=== PATIENT | male | born 1965 | race Caucasian/White ===

== ENCOUNTER 2016-11-07 02:54 | Emergency (ER) | payer BC, OTHER ==
--- NOTE | 2016-11-07 03:05 | ED ---
Throat Pain/Nasal Congestion - HPI Summary HPI Summary: Patient accidentally broke a tooth last night. No allev factors attempted. Has associated hyperesthesia. Denies systemic symptoms or neuro symptoms. - History of Current Complaint Time Seen by Provider: 11/07/16 02:57 Hx Obtained From: Patient Severity: Moderate - Allergies/Home Medications Allergies/Adverse Reactions: Allergies Allergy/AdvReac Type Severity Reaction Status Date / Time No Known Allergies Allergy Verified 08/20/12 22:45 PMH/Surg Hx/FS Hx/Imm Hx Previously Healthy: Yes Infectious Disease History: Denies: Traveled Outside the [place] in Last 30 Days - Social History Substance Use Type: Reports: None Review of Systems Positive: Dental Pain All Other Systems Reviewed And Are Negative: Yes Physical Exam Triage Information Reviewed: Yes Vital Signs Reviewed: Yes Appearance: Positive: Well-Appearing, Well-Nourished, Pain Distress Skin: Positive: Warm, Skin Color Reflects Adequate Perfusion Head/Face: Positive: Normal Head/Face Inspection Eyes: Positive: Normal ENT: Positive: Dental tenderness, Other - Broken tooth number 14 Neck: Positive: Supple, Nontender, No Lymphadenopathy Respiratory/Lung Sounds: Positive: Clear to Auscultation, Breath Sounds Present Cardiovascular: Positive: Normal, RRR Neurological: Positive: Normal, Sensory/Motor Intact, Alert, Oriented to Person Place, Time, CN Intact II-III, Reflexes Intact, NV Bundle Intact Distally EENT Course/Dx - Course Course Of Treatment: Dental block and antibiotic prescription. Dental FU recommended and referred. - Differential Diagnoses Differential Diagnoses: Other - Dental fracture Matt 2 - Diagnoses Provider Diagnoses: Tooth fracture Discharge - Discharge Plan Condition: Stable Disposition: HOME Prescriptions: Penicillin VK TAB 500 MG(NF) [Penicillin VK 500 mg Tab(NF)] 500 mg PO QID 10 Days Patient Education Materials: Toothache (ED) Referrals: No Primary Care Phys,NOPCP [Medical Doctor] - Diego Redman MD [Doctor of Dental Medicine] -
[2016-11-07 03:08] VITALS: BP 154/90
[2016-11-07] MEDS ORDERED: Acetaminop/Codeine 30 MG TAB* 1 TAB (300 MG/30 MG) ONE (03:41)
[2016-11-07] MEDS ORDERED: Acetaminop/Codeine 30 MG TAB* 1 TAB (300 MG/30 MG) PO ONE (03:46)
== END 2016-11-07 03:50 | disposition home or self-care (01) ==
LOC: ED 02:54
DX: S02.5XXA Fracture of tooth (traumatic), initial encounter for closed fracture (principal); S06.9X0A Unspecified intracranial injury without loss of consciousness, initial encounter
CPT/HCPCS: 99281; A9270-GY

== ENCOUNTER 2019-06-06 09:52 | Observation (INO) | payer BC ==
--- NOTE | 2019-06-06 10:18 | ED ---
Complex/Multi-Sys Presentation - HPI Summary HPI Summary: This patient is a 53 year old M presenting to [facility] with a chief complaint of SOB, stabbing flank pain, and back pain since yesterday. He had a gastric bypass done years ago. Pt describes the back pain as being hit by a rubber band on the area. He notes he has a DVT, but is not currently on any blood thinner medication. Pt has FHx for MT. The patient rates the pain 8/10 in severity. Symptoms aggravated by nothing. Symptoms alleviated by nothing. Patient reports cough. Patient denies nausea, fever, difficulty breathing. Medications reviewed. Allergies noted. Pt has not travelled recently. Pt is a daily drinker , but does not use drugs. - History Of Current Complaint Chief Complaint: EDChestPainROMI Time Seen by Provider: 06/06/19 10:09 Hx Obtained From: Patient Onset/Duration: Sudden Onset, Lasting Days - 1, Still Present Timing: Constant, Days - 1 Severity Currently: Moderate Severity Initially: Moderate Character: Sharp - flank pain is sharp Aggravating Factor(s): nothing Alleviating Factor(s): nothing Associated Signs And Symptoms: Positive: SOB, Cough, Back Pain, Other - positive - stabbing flank pain. negative - difficulty breathing.. Negative: Nausea, Fever - Allergies/Home Medications Allergies/Adverse Reactions: Allergies Allergy/AdvReac Type Severity Reaction Status Date / Time No Known Allergies Allergy Verified 06/06/19 10:23 Home Medications: Home Medications NK [No Home Medications Reported] 06/06/19 [History Confirmed 06/06/19] PMH/Surg Hx/FS Hx/Imm Hx Previously Healthy: No Sensory History: Denies: Hx Cataracts EENT History: Denies: Hx Deafness Neurological History: Denies: Hx Dementia - Surgical History Surgical History: Yes Infectious Disease History: No Infectious Disease History: Denies: Traveled Outside the [place] in Last 30 Days - Family History Known Family History: Positive: Cardiac Disease - Social History Alcohol Use: None Substance Use Type: Reports: None Smoking Status (MU): Never Smoked Tobacco Review of Systems Negative: Fever Respiratory: Other - negative - difficulty breathing Positive: Shortness Of Breath, Cough Gastrointestinal: Other - positive - stabbing flank pain Negative: Nausea Musculoskeletal: Other - positive - back pain All Other Systems Reviewed And Are Negative: Yes Physical Exam - Summary Physical Exam Summary: Constitutional: Well-developed, Well-nourished, Alert. (-) Distressed Skin: Warm, Dry HENT: Normocephalic; Atraumatic Eyes: Conjunctiva normal Neck: Musculoskeletal ROM normal neck. (-) JVD, (-) Stridor, (-) Tracheal deviation Cardio: Rhythm regular, rate normal, Heart sounds normal; Intact distal pulses; The pedal pulses are 2+ and symmetric. Radial pulses are 2+ and symmetric. (-) Murmur Pulmonary/Chest wall: Effort normal. (-) Respiratory distress, (-) Wheezes, (-) Rales Abd: Soft, (-) tenderness, (-) Distension, (-) Guarding, (-) Rebound Musculoskeletal: (-) Edema Lymph: (-) Cervical adenopathy Neuro: Alert, Oriented x3 Psych: Mood and affect Normal Triage Information Reviewed: Yes Vital Signs On Initial Exam: Initial Vitals Temp Pulse Resp BP Pulse Ox 97.8 F 106 18 186/107 96 06/06/19 09:52 06/06/19 09:52 06/06/19 09:52 06/06/19 09:52 06/06/19 09:52 Vital Signs Reviewed: Yes Diagnostics - Vital Signs Vital Signs Temp Pulse Resp BP Pulse Ox 06/06/19 09:52 97.8 F 106 18 186/107 96 - Laboratory Result Diagrams: 06/06/19 10:03 06/06/19 10:03 Lab Statement: Any lab studies that have been ordered have been reviewed, and results considered in the medical decision making process. - CT Chest/Thorax CTA CT Interpretation Completed By: Radiologist Summary of CT Findings: IMPRESSION: 1. LARGE BILATERAL PULMONARY EMBOLI. 2. NODULARITY OF THE RIGHT LOWER LUNG MEASURING UP TO 1.8 CM IN SIZE. THE RECOMMENDATIONS FOR FOLLOWUP AND MANAGEMENT OF AN INCIDENTALLY DETECTED PULMONARY NODULE GREATER THAN 8 MM IN SIZE, IN A PATIENT WITHOUT A HISTORY OF MALIGNANCY, INCLUDE FOLLOWUP CT AT 3 MONTHS, PET-CT, AND/OR BIOPSY. 3. SMALL LEFT PLEURAL EFFUSION. 4. FATTY INFILTRATION OF THE LIVER. These findings were reviewed by Dr. Feliz. - EKG 1018 Cardiac Rate: Tachycardia - 103 BPM EKG Rhythm: Sinus Tachycardia Summary of EKG Findings: Sinus tachycardia, 103 BPM, inverted t wave in 3 and Q wave in 3 Complex Multi-Symp Course/Dx Course Of Treatment: Patient is here with chest pain and shortness of breath 2/ 2 to newly diagnosed PE. Patient was stable and satting well on room air upon arrival. Patient had a CT which showed bilateral pulmonary embolisms. Patient had normal troponin and BNP. Patient was normotensive. Patient was restarted on xarelto. Patient was admitted to the hospital for further workup and management. - Diagnoses Provider Diagnoses: Chest pain, Tachycardia, Pulmonary embolism - Physician Notifications Discussed Care Of Patient With: Alma Moise Time Discussed With Above Provider: 11:41 Instructed by Provider To: Other - Dr. Moise, hospitalist, agrees to admit pt. Discharge ED - Sign-Out/Discharge Documenting (check all that apply): Patient Departure - admit Patient Received Moderate/Deep Sedation with Procedure: No - Discharge Plan Condition: Stable Disposition: ADMITTED TO [facility] - Billing Disposition and Condition Condition: STABLE Disposition: Admitted to [facility] - Attestation Statements Document Initiated by Scribe: Yes Documenting Scribe: Jimi Kang Provider For Whom Scribe is Documenting (Include Credential): Dr. Ahmet Feliz MD Scribe Attestation: Jimi Valentin scribed for Dr. Ahmet Feliz MD on 06/06/19 at 1508. Scribe Documentation Reviewed: Yes Provider Attestation: The documentation as recorded by the Jimi adams accurately reflects the service I personally performed and the decisions made by me, Dr. Ahmet Feliz MD Status of Scribe Document: Viewed
[2019-06-06 10:19] LABS: ABS Basophils 0.1 10^3/ul (0-0.2); ABS Eosinophils 0.1 10^3/ul (0-0.6); ABS Lymphocytes 0.8 10^3/ul (1.0-4.8); ABS Monocytes 0.9 10^3/ul (0-0.8); ABS Neutrophils 5.5 10^3/ul (1.5-7.7); Eosinophil % 1.6 %; Hematocrit 41 % (42-52); Hemoglobin 13.9 g/dL (14.0-18.0); Lymphocyte % 11.1 %; Mean Corpuscular HGB Conc 34 g/dL (31-36); Mean Corpuscular Hemoglobin 31 pg (27-31); Mean Corpuscular Volume 89 fL (80-94); Mean Platelet Volume 8.8 fL (7.4-10.4); Platelet Count 160 10^3/uL (150-450); Red Blood Count 4.56 10^6 /uL (4.18-5.48); Red Cell Distribution Width 12 % (10-15); White Blood Count 7.4 10^3/uL (3.5-10.8)
[2019-06-06 10:38] LABS: INR 1.21 (0.82-1.09)
[2019-06-06 10:44] LABS: Albumin 3.9 g/dL (3.2-5.2); Calcium 8.8 mg/dL (8.6-10.3); Total Bilirubin 1.4 mg/dL (0.2-1.0)
[2019-06-06 10:50] LABS: Albumin/Globulin Ratio 1.2 (1-3); BUN/Creatinine Ratio 11.8 (8-20); EGFR African American 114.1 (>60); EGFR Non-African American 94.3 (>60); Globulin 3.3 g/dL (2-4); Total Protein 7.2 g/dL (6.4-8.9)
[2019-06-06] MEDS ORDERED: Iohexol 350* (CONTRAST) 500 ML MDV IV ONE (11:20)
[2019-06-06] MEDS ORDERED: Rivaroxaban TAB(*) 15 MG PO ONE (11:41)
[2019-06-06] MEDS ORDERED: Acetaminophen TAB* 325 MG PO PRN (12:35)
[2019-06-06] MEDS ORDERED: NS 0.9% 1000 ML** 1,000 ML IV SCH (12:45)
[2019-06-06] MEDS ORDERED: Perflutren Lipid Microsphere* 3 ML VIAL ONE (14:54)
--- NOTE | 2019-06-06 16:38 | ECHO ---
*[facility]* [place] [address] Fax #: [phone] Transthoracic Echocardiogram Patient: Babar Viveros : 1965 Study Date: 06/06/2019 Age: 53 Gender: M HR: Height: 68 in /172.7 cm BSA: 2.25 m^2 Weight: 249.5 lb /113.4 kg BMI: 38 kg/m^2 *Vat Operator: * Peg Edwards [facility] *Referring Physician: * Veronica Araujo *Reading Physician: * Ana Solorio MD Indications: Pulmonary Embolism. History: Family history of CAD. Conclusions Summary: - Left ventricle: The cavity size is normal. Wall thickness is mildly increased. Systolic function is at the lower limits of normal. The estimated ejection fraction is 50-55%. Doppler parameters are consistent with abnormal left ventricular relaxation (grade 1 diastolic dysfunction). - Right ventricle: Systolic function is mildly to moderately reduced. - Mitral valve: There is trace regurgitation. - Aortic valve: The leaflets are mildly calcified, predominantly NCC. There is no evidence of stenosis. - No prior echocardiogram to compare. Study data: Transthoracic echocardiogram. Procedure: Transthoracic echocardiography was performed. Image quality was suboptimal. The study was technically limited due to body habitus. Intravenous Definity , 4 mlswas administered. Image enhancement administered by Complete 2D, spectral Doppler, and color flow Doppler. Patient status: Inpatient. Patient room number: 445-2. Rhythm: Normal sinus rhythm. Findings Left ventricle: The cavity size is normal. Wall thickness is mildly increased. Systolic function is at the lower limits of normal. The estimated ejection fraction is 50-55%. Wall motion is normal; there are no regional wall motion abnormalities. Doppler parameters are consistent with abnormal left ventricular relaxation (grade 1 diastolic dysfunction). Right ventricle: Not well visualized. The cavity size is normal. Wall thickness is normal. Systolic function is mildly to moderately reduced based on images using echocardiogram contrast. Ventricular septum: Well visualized. Left atrium: Not well visualized. The atrium is normal in size. Right atrium: Not well visualized. The atrium is normal in size. Atrial septum: Not well visualized. Mitral valve: Well visualized. The leaflets are mildly thickened. No echocardiographic evidence for prolapse. There is no evidence of stenosis. There is trace regurgitation. Aortic valve: Well visualized. The leaflets are mildly calcified, predominantly NCC. Cusp separation is normal. There is no evidence of stenosis. There is no regurgitation. Tricuspid valve: Not well visualized. The leaflets are normal thickness. There is no evidence of stenosis. There is no significant regurgitation. Pulmonic valve: Not well visualized. The leaflets are normal thickness. There is no evidence of stenosis. There is no significant regurgitation. Aorta: The aorta is well visualized and normal size. The aortic root appears normal. The aortic arch appears normal. Pericardium: There is no pericardial effusion. No evidence of pleural fluid accumulation. Pulmonary arteries: Not well visualized. Systemic veins: Not well visualized. Pulmonary veins: Visualization of the pulmonary venous anatomy is incomplete, but a significant abnormality is unlikely. Measurements Left ventricle Value Ref Right atrium Value Ref FRANCISCO JAVIER, LAX (L) 3.5 cm 4.2 - SI dim, ES 4.5 cm 3.4 - 5.3 5.8 ML dim, ES, A4C 3.0 cm 2.6 - 4.4 ESD, LAX 2.5 cm 2.5 - SI dim, ES, A4C 4.5 cm 3.4 - 5.3 4.0 SI dim/bsa, ES, A4C 2.0 cm/m^2 1.8 - 3.0 FS, LAX 30 % 25 - 43 PW, ED, LAX 0.7 cm 0.6 - Aortic valve Value Ref 1.0 Amber diam, ED 2.2 cm --------- FS 30 % 25 - 43 Amber diam/bsa, ED 1.0 cm/m^2 --------- Mid-wall FS 12 % -------- Peak v, S 1.32 m/sec --------- PW, ED 0.7 cm 0.6 - VTI, S 21.9 cm --------- 1.0 Mean grad, S 4.0 mm Hg --------- PW/ID, ED 0.2 -------- Peak grad, S 7.0 mm Hg --------- E', lat amber, TDI 11.5 cm/sec >=10.0 LVOT/AV, VTI ratio 0.89 - -------- E/e', lat amber, TDI 8 -------- E', med amber, TDI (L) 6.5 cm/sec >=7.0 Mitral valve Value R ef E/e', med amber, TDI 14 -------- Peak E 0.92 m/sec ---- ----- E', avg, TDI 9.0 cm/sec -------- Peak A 1.05 m/sec ---- ----- E/e', avg, TDI 10 <=14 Decel time 208 ms - -------- Peak grad, D 3.4 mm Hg --------- LVOT Value Ref Peak E/A ratio 0.9 --------- Peak colton, S 1.11 m/sec -------- VTI, S 19.5 cm -------- Aortic root Value Ref Mean grad, S 2 mm Hg -------- Root diam 3.1 cm <4.3 Root max diam, ED 3.1 cm <4.3 Ventricular septum Value Ref IVS, ED (H) 1.3 cm 0.6 - Ascending aorta Value Ref 1.0 AAo AP diam, S 3.0 cm --------- AAo AP diam/bsa, S 1.3 cm/m^2 --------- Right ventricle Value Ref FRANCISCO JAVIER, LAX 3.4 cm -------- Aortic arch Value Ref FRANCISCO JAVIER minor ax, A4C 3.3 cm 1.9 - Arch diam 2.7 cm --------- mid 3.5 Decending aorta Value Ref Left atrium Value Ref Jg peak colton 0.84 m/sec --------- ML dim, A4C 2.8 cm -------- SI dim, A4C 5.0 cm -------- Vol/bsa, ES, 1-p 13 ml/m^2 12 - 37 A4C Vol/bsa, ES, A/L (L) 15 ml/m^2 16 - 34 Legend: (L) and (H) dillon values outside specified reference range. Prepared and electronically signed by Ana Solorio MD 06/06/2019 16:38
[2019-06-06] MEDS: traMADol TAB* 50 MG PO PRN ×2 (16:55→23:11)
[2019-06-06] MEDS ORDERED: Iohexol 300* (CONTRAST) 10 ML SDV IV ONE (17:52)
--- NOTE | 2019-06-06 18:13 | HP ---
CC: Dr. Kat * HISTORY AND PHYSICAL: DATE OF ADMISSION: 06/06/19 PROVIDER: Clint Araujo NP PRIMARY CARE PROVIDER: Dr. Kat. ATTENDING PHYSICIAN WHILE IN THE HOSPITAL: Dr. Alma Moise *(dictated by Clint Araujo NP). CHIEF COMPLAINT: Chest pain and shortness of breath. HISTORY OF PRESENT ILLNESS: Mr. Viveros is a 53-year-old male with a past medical history of a provoked DVT in 2017 after a long flight, who presented to the emergency room with complaints of chest pain and shortness of breath that started yesterday. 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 He reported that during the day he developed some right lower back pain that felt like a tight rubber band on his back snapping, but continued to work through the pain. The patient reports that when he returned home at approximately 5:30 that he developed some shortness of breath and chest pain. He reports that over the night the chest pain and shortness of breath became worse, so he presented to the emergency room for further evaluation. He does report that the shortness of breath is worse with lying flat. He reports that it hurts to take a deep breath. He denies any recent injuries. He denies any pain in the calves. He does report that approximately 1 week ago he had some right leg swelling that lasted less than 24 hours and then resolved. He does report a cough with clear secretions that started yesterday. He denies any fever or unintended weight loss. He does report chest discomfort in the left chest radiating up to his left shoulder. He does report right lower leg swelling, productive cough of clear secretions. No hemoptysis. Shortness of breath worse with lying flat, constant, no change with exertion. Denies any nausea, vomiting, diarrhea, abdominal pain, hematuria, dysuria. Denies any focal weakness or sensory loss, visual complaints, dysphagia, arthralgias, myalgias, rashes, lesions or open sores. Denies any psychosis or anxiety. While in the emergency room, the patient had routine lab work drawn. He had a CTA of the chest that showed bilateral pulmonary embolism. Due to this finding , Hospital Medicine was asked to see and evaluate the patient for admission. PAST MEDICAL HISTORY: Significant for provoked DVT after a long flight in 2016 , for which he was on Xarelto for 3 months. PAST SURGICAL HISTORY: Gastric bypass. HOME MEDICATIONS: None. ALLERGIES: No known drug allergies. FAMILY HISTORY: Reviewed and noncontributory. SOCIAL HISTORY: Denies any tobacco use. Reports occasional alcohol use. No illicit drug use. 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 He is . Surrogate decision maker in the event he is unable to make his own decisions is his . Code status is undetermined at this time as he wishes to discuss this with his . REVIEW OF SYSTEMS: A 14-point review of systems was completed. All pertinent positives were mentioned in the HPI. PHYSICAL EXAMINATION GENERAL: At this time, Mr. Viveros is resting on the stretcher in the emergency room. He is alert and oriented x3. He is in no acute distress. VITAL SIGNS: Blood pressure 164/92, heart rate is 90, respirations 18, O2 saturation 95%, temperature was 98.8. HEENT: Head is atraumatic, normocephalic. Eyes: EOMs are intact. Sclerae anicteric and not pale. Oral mucosa appeared to be moist. NECK: Supple. LUNGS: Clear to auscultation bilaterally with diminished breath sounds in the left base. ABDOMEN: Obese, soft, nontender. Bowel sounds are present x4. EXTREMITIES: Pedal pulses are +2 bilaterally. His right leg does have mild amount of swelling. Calf is nontender. Homans sign is negative. There is no clubbing or cyanosis. NEUROLOGIC: He is awake, alert, oriented x3. Speech is clear. Thought process is intact. There are no gross focal deficits. SKIN: Intact. DIAGNOSTIC STUDIES/LAB DATA: WBCs are 7.4, RBCs 4.56, hemoglobin 13.9, hematocrit is 41, platelet count 160. INR is 1.21. Sodium 136, potassium 4.0, chloride 100, carbon dioxide was 27, anion gap was 9, BUN was 10, creatinine 0.85, glucose was 119, calcium 8.8. Total bilirubin 1.40, ASTs were 22, ALTs were 21, alkaline phosphatase was 104. Troponin was 0.00 x2, BNP was 14. He had a CTA of the chest, radiologist's impression: 1. Large bilateral pulmonary emboli. 2. Nodularity of the right lower lung measuring up to 1.8 cm in size. Recommend followup in 3 months with a PET/CT and/or biopsy. 3. Small left pleural effusion. 4. Fatty infiltration of the liver. He had an electrocardiogram, which showed sinus tachycardia at a rate of 103. He had a venous Doppler: Bilateral lower extremity deep vein thrombosis with large burden of clot on the right. He had a transthoracic echocardiogram: 1. Left ventricle: The cavity size is normal. Wall thickness is mildly increased. Systolic function is at the lower limits of normal. The estimated ejection fraction of 50% to 55%. Doppler parameters are consistent with abnormal left ventricular relaxation. Grade 1 diastolic dysfunction. 2. Right ventricle: Systolic function is mild to moderately reduced. 3. Mitral valve: There is trace regurgitation. 4. Aortic valve: The leaflets are mildly calcified predominantly NCC. There is no evidence of stenosis. No prior echocardiogram to compare. ASSESSMENT AND PLAN: Mr. Viveros is a 53-year-old male with a past medical history of a provoked deep vein thrombosis in 2017 and gastric bypass, who presented to the emergency room with complaints of chest pain and shortness of breath. The patient was found to have bilateral pulmonary embolisms as well as bilateral deep vein thromboses. He will be admitted under observation for: 1. Bilateral pulmonary embolism with bilateral deep vein thrombosis. The patient did have a venous Doppler, transthoracic echocardiogram and CTA of the chest, which confirmed bilateral pulmonary embolism and bilateral deep vein thromboses. I will get CT of the abdomen and pelvis with contrast to rule out any mass. The patient will be started on Xarelto 15 mg p.o. b.i.d. for 21 days and then he should be converted to Xarelto 20 mg p.o. daily. I have spoken to Dr. Thurman from Hematology/Oncology, who will see the patient as an outpatient for further workup. 2. FEN: He can have a regular diet. 3. Code status: Full code, needs to be followed up. 4. DVT prophylaxis: The patient will be on Xarelto. TIME SPENT: Time spent on this admission was 60 minutes, greater than half that time was spent at the bedside reviewing events leading thus far to this hospitalization, performing physical exam, and reviewing my plan of care. I have discussed this with my attending, Dr. Alma Moise; she is in agreement with my plan. CLINT ARAUJO NP spoke to Hem/onc about Venous Doppler and clot burden - ok to proceed with current plan of Xarelto and follow up as outpatient next week. [id number]/[facility] #: [id number] MTDD
[2019-06-06] MEDS: Rivaroxaban TAB(*) 15 MG PO SCH (20:25)
[2019-06-07 06:52] LABS: ABS Basophils 0.1 10^3/ul (0-0.2); ABS Eosinophils 0.4 10^3/ul (0-0.6); ABS Lymphocytes 0.9 10^3/ul (1.0-4.8); ABS Monocytes 0.9 10^3/ul (0-0.8); ABS Neutrophils 4.6 10^3/ul (1.5-7.7); Eosinophil % 5.8 %; Hematocrit 38 % (42-52); Hemoglobin 13.3 g/dL (14.0-18.0); Lymphocyte % 13.3 %; Mean Corpuscular HGB Conc 35 g/dL (31-36); Mean Corpuscular Hemoglobin 31 pg (27-31); Mean Corpuscular Volume 88 fL (80-94); Platelet Count 150 10^3/uL (150-450); Red Blood Count 4.33 10^6 /uL (4.18-5.48); Red Cell Distribution Width 13 % (10-15); White Blood Count 6.9 10^3/uL (3.5-10.8)
[2019-06-07 07:09] LABS: BUN/Creatinine Ratio 18.1 (8-20); Calcium 8.8 mg/dL (8.6-10.3); EGFR African American 138.2 (>60); EGFR Non-African American 114.2 (>60)
--- NOTE | 2019-06-07 07:47 | PN ---
Subjective Date of Service: 06/07/19 Interval History: 53 y/o M with h/o DVT on 2017 presented with pleuritic chest pain and SOB for 1 day. Found to have B/L DVT with B/L submassive PE. On Xarelto. Ct Abdomen didnot showed any mass. Patient had cough today which was mixed with blood. NO bleeding form any other site. No fever, palpitation, chest pain or SOB. VS stable. Objective Active Medications: Acetaminophen (Tylenol Tab*) 975 mg PO Q6H PRN PRN Reason: MILD PAIN or TEMP > 100.4 Last Admin: 06/06/19 20:24 Dose: 975 mg Rivaroxaban (Xarelto(*)) 15 mg PO BID JO ANN Stop: 06/26/19 21:01 Last Admin: 06/06/19 20:25 Dose: 15 mg Tramadol HCl (Ultram*) 50 mg PO Q6H PRN PRN Reason: PAIN - MODERATE Last Admin: 06/06/19 23:11 Dose: 50 mg Vital Signs - 8 hr 06/07/19 06/07/19 06/07/19 01:11 03:14 07:15 Temperature 97.7 F 97.1 F Pulse Rate 76 80 Respiratory 18 22 20 Rate Blood Pressure 128/75 116/64 (mmHg) O2 Sat by Pulse 95 95 Oximetry Oxygen Devices in Use Now: None Exam: Patient is lying on a bed with no acute distress. HEENT: Normocephalic and atraumatic Lungs: clear HEart: S1/S2 with no murmur ABdomen: SOft, nontender and nondistended. Normal BS Extremity: No any swelling, rednesss or tenderness Neuro: Alert, conscious and oriented. Result Diagrams: 06/07/19 06:28 06/07/19 06:28 Assess/Plan/Problems-Billing Assessment: 53 y/o M with h/o DVT on 2017 presented with pleuritic chest pain and SOB for 1 day. Found to have B/L DVT with B/L submassive PE with no evidence of right heart strain. On Xarelto. Ct Abdomen didnot showed any mass. - Patient Problems (1) Pulmonary embolism Current Visit: Yes Status: Acute Code(s): I26.99 - OTHER PULMONARY EMBOLISM WITHOUT ACUTE COR PULMONALE SNOMED Code(s): 00345336 Comment: B/L submassive PE 2/2 DVT with non evidenceof right heart strain on echo. Had provoked DVT on 2017 fro [facility] he took AC for 8 month. This event is unprovoked with no recent travel, trauma or surgery. Needs oupatient workup for occult malignancy with close f/u with hem-onc. CT abdomen/pelvis didnot show any neoplasm or lymphadenopathy. He is on xarelto 15 mg BID which he will continue for 21 days then 20 mg once daily thereafter. He needs AC for lifelong if no malignancy found. (2) DVT (deep venous thrombosis) Current Visit: Yes Status: Acute Code(s): I82.409 - ACUTE EMBOLISM AND THOMBOS UNSP DEEP VN UNSP LOWER EXTREMITY SNOMED Code(s): 543142409 Comment: Unprovoked. Needs workup for occult malignancy with close follow up with hem-onc. On xarelto. (3) DVT prophylaxis Current Visit: Yes Status: Acute Code(s): Z29.9 - ENCOUNTER FOR PROPHYLACTIC MEASURES, UNSPECIFIED SNOMED Code(s): 785459901 Comment: On xarelto (4) Full code status Current Visit: Yes Status: Acute Code(s): Z78.9 - OTHER SPECIFIED HEALTH STATUS SNOMED Code(s): 225951849 Status and Disposition: Inpatietn; will d/c him today with f/u with PCP and Dr. ford. Attending: Adri Casper Attestation Documenting Resident: Reema Mcclure Supervising Physician: Adri Casper Attestation: This service has been performed in part by a resident under the direction of a teaching physician.I, Adri Casper, performed the service, or was physically present during the critical, or andersen portions of the service, furnished by the resident. I participated in the management of the patient.
[2019-06-07 08:59] VITALS: BP 114/78
[2019-06-07] MEDS: Rivaroxaban TAB(*) 15 MG PO SCH (09:43)
--- NOTE | 2019-06-07 19:41 | DS ---
CC: Dr. Kyung Craig; Dr. Wan Thurman * DISCHARGE SUMMARY: DATE OF ADMISSION: 06/06/19 DATE OF DISCHARGE: 06/07/19 PRIMARY CARE PROVIDER: Dr. Kyung Craig. PRIMARY DIAGNOSES: 1. Bilateral submassive pulmonary embolus without evidence of right heart strain. 2. Right lower extremity deep venous thrombosis, thought to be unprovoked. SECONDARY DIAGNOSES: 1. History of provoked deep venous thrombosis in 2017 from a long flight. 2. Obesity. 3. Status post gastric bypass. MEDICATIONS AT THE TIME OF DISCHARGE: Xarelto 15 mg p.o. b.i.d. for an additional 20 days status post discharge and subsequently 20 mg p.o. daily for ongoing indefinite anticoagulation. Medication changes on this hospitalization include the addition of anticoagulation as he was on no medications prior to this admission. HISTORY OF PRESENT ILLNESS AND HOSPITAL COURSE: A 53-year-old male with past medical history of provoked DVT in 2017 after a long flight, who presented to the emergency room with complaints of chest pain and shortness of breath that started 1 day prior to admission. 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 He decided he would present to the emergency room where he was found to have mild tachycardia with a heart rate in the upper 90s, blood pressure of 160/92. CTA of the chest was done that showed large bilateral pulmonary emboli, nodularity of the right lower lung measuring 1.8 cm in size, small left pleural effusion, and also incidentally fatty infiltration of the liver. He had an EKG that showed sinus tachycardia and no other acute signs of ischemia. He also had a venous Doppler that showed bilateral lower extremity DVT with a large burden of clot on the right. Furthermore, he had a transthoracic echocardiogram that showed preserved ejection fraction of 50% to 55%, grade 1 diastolic dysfunction and notably no right heart strain. Troponin was 0 on admission. Labs were otherwise unremarkable. The patient was admitted to the hospital. Hospital course by problem is as follows: 1. Bilateral pulmonary embolism with bilateral DVT with right lower extremity DVT greater than left. He has no evidence of right heart strain. This is considered second occurrence of DVT, this time unprovoked. Dr. Thurman was contacted, who reported that the patient can follow up as an outpatient. He was started on Xarelto. He tolerated the first dose well. He was discharged on hospital day 2 with plan to pursue an occult malignancy workup in the setting of unprovoked DVT. He is counseled that this would likely include repeat scan of the lung. CT abdomen and pelvis with IV contrast was done while the patient was in the hospital that showed no acute malignancy. Furthermore, at discretion of junior paralegal, a hypercoagulable workup can be pursued. 2. Nodularity of the right lower lung. Again, unclear on significance of this. The patient will need followup with repeat CT or consider biopsy if in the setting of his acute malignancy workup and other noninvasive tests are not revealing. On the day of discharge, the patient is ambulating, voiding freely. He completed a 6-minute walk test without desaturations, holding saturations of 95 % on room air. His vital signs are stable. Physical exam was done on the day of discharge, which can be found in progress notes, unremarkable. He does have mild cough with some blood-tinged sputum, but no bonnie hemoptysis. He is counseled on precautions to return to the emergency room. LABS AND STUDIES DONE DURING THIS HOSPITALIZATION: Include a transthoracic echocardiogram done on 06/06/19 that showed a preserved ejection fraction, no right heart strain, and grade 1 diastolic dysfunction. CTA of the chest showed bilateral pulmonary embolism and nodularity in the right lung as well as incidental fatty liver. Venous Doppler of bilateral lower extremities showed bilateral DVTs with clot burden greater on the right. EKG was done on 06/05/19 shows sinus tachycardia with no evidence of ischemia. Labs done. CBC was done, which shows white blood cell count of 6.9, hemoglobin of 13.3, hematocrit of 38, and platelets 150. BMP shows sodium of 134, potassium 4, chloride 100, anion gap 7, BUN 13, creatinine 0.7, glucose 99. LFTs are unremarkable. Troponin is 0. LDL was 93. ITEMS TO FOLLOW UP ON STATUS POST DISCHARGE: 1. New unprovoked DVT and PE. Again, occult malignancy workup is to be initiated and the patient will follow up with Dr. Thurman as an outpatient. This referral was made for him at the time of discharge. He needs also followup with primary care. Xarelto was prescribed for him and instructions on dosing which is b.i.d. for 20 days status post discharge and then daily afterwards were given. Furthermore, co-pays were checked in the pharmacy, $30 per prescription and the patient was agreeable to being able to afford this. 2. Incidental finding of right pulmonary nodularity ?if this is related to occult malignancy. Consider PET or biopsy if noninvasive forms of cancer screening are unremarkable or unrevealing. 3. Fatty liver. Also incidental finding. LFTs are normal. Counseled the patient on diet and exercise. TIME SPENT: Forty minutes was spent on the planning of this discharge with over half of that spent directly at the bedside of the patient providing direct patient care. Plan of care was discussed with the patient, who has no further questions. If there are any questions about the care of this patient during this hospitalization, please do not hesitate to reach out and contact me directly, my cellphone is [phone]. DISPOSITION AT THE TIME OF DISCHARGE: The patient is stable to be discharged to home. [id number] #: [id number] JANET
== END 2019-06-07 14:00 | disposition home or self-care (01) ==
LOC: ED 09:52 → MEDTELE 12:15
PROVIDERS: ADMIT Internal Medicine; ATTEND Internal Medicine
DX: I26.99 Other pulmonary embolism without acute cor pulmonale (principal); I82.401 Acute embolism and thrombosis of unspecified deep veins of right lower extremity; Z86.718 Personal history of other venous thrombosis and embolism; E66.9 Obesity, unspecified; Z98.84 Bariatric surgery status; R07.9 Chest pain, unspecified; R06.02 Shortness of breath; Z79.01 Long term (current) use of anticoagulants; Z79.899 Other long term (current) drug therapy; M54.9 Dorsalgia, unspecified; R05 Cough; R00.0 Tachycardia, unspecified
CPT/HCPCS: 36415; 71275; 74177; 80048; 80053; 80061; 83880; 84484; 85025; 85610; 93005; 93306; 93970; 99284; A9270-GY; C8929; G0378; Q9967

== ENCOUNTER 2019-09-28 10:32 | Day surgery (SDC) | payer BC ==
[~2019-09-28 10:32] MED LIST: Buffered Lidocaine 1% SYRIN* 1 ML/SYRINGE INTRADERM ONE; Dexamethasone IV* 4 MG/ML 1 ML (4 MG) IV SLOW PU ONE; Famotidine IV* 10 MG/ML 2 ML (20 mg) IV ONE; Lactated Ringers 1000 ML Bag* 1,000 ML IV SCH
[2019-09-28] MEDS ORDERED: Dexamethasone IV* 4 MG/ML 1 ML (4 MG) ONE ×2 (11:42→13:41)
[2019-09-28] MEDS ORDERED: Famotidine IV* 10 MG/ML 2 ML (20 mg) ONE (11:42)
[2019-09-28] MEDS ORDERED: Buffered Lidocaine 1% SYRIN* 1 ML/SYRINGE INTRADERM ONE (11:42)
[2019-09-28] MEDS ORDERED: fentaNYL* 50 MCG/ML 2 ML VIAL (100 MCG VIAL) ONE (13:00)
[2019-09-28] MEDS ORDERED: Lidocaine 2% PF * 5 ML VIAL ONE (13:00)
[2019-09-28] MEDS ORDERED: Propofol* 10 MG/ML 20 ML BTL ONE (13:00)
[2019-09-28] MEDS ORDERED: Midazolam* 1 MG/ML 2 ML VIAL (2 MG) ONE (13:00)
[2019-09-28] MEDS ORDERED: Rocuronium* 10 MG/ML VIAL ONE (13:00)
[2019-09-28] MEDS ORDERED: Benzocaine/Butamben/Tetracain (CETACAINE - SINGLE USE) 5 gm TOPICAL ONE (13:30)
[2019-09-28] MEDS ORDERED: DiMENhydriNATE IV* 50 MG/ML VIAL IV PUSH PRN (13:40)
[2019-09-28] MEDS ORDERED: oxyCODONE TAB* 5 MG TAB PO PRN (13:40)
[2019-09-28] MEDS ORDERED: Naloxone* 0.4 MG/ML 1 ML VIAL IV PRN (13:40)
[2019-09-28] MEDS ORDERED: fentaNYL* 50 MCG/ML 2 ML VIAL (100 MCG VIAL) IV PRN (13:40)
[2019-09-28] MEDS ORDERED: Metoclopramide IV* 5 MG/ML 2 ML VIAL ONE (13:41)
[2019-09-28] MEDS ORDERED: Ondansetron INJ* 2 MG/ML VIAL ONE (13:41)
[2019-09-28] MEDS ORDERED: Levalbuterol 1.25MG/0.5ML NEB ONE (14:16)
--- NOTE | 2019-09-28 15:05 | BRIEFOPN ---
Brief Operative/Procedure Note - Operation Details Pre-Op Diagnosis: Lymphadenopathy, Rt lung nodules Post-Op Diagnosis: Lung cancer Procedures: Bronchoscopy/EBUS Surgeon(s)/Proceduralists: bobo Douglass Anesthesia: [place]- Dr Stoner Estimated Blood Loss: Negligable Findings: No enlarged lymph nodes on left, enlarged R4, station 7, R10 and hilar nodes Specimen(s)/Culture(s) Description: R4 FNA- 4 passes. Positive for malignant cells Complications: None
[2019-09-28 15:50] VITALS: BP 140/92
--- NOTE | 2019-09-28 23:40 | PRO ---
BRONCHOSCOPY REPORT: DATE OF PROCEDURE: 09/28/19 PROCEDURE PERFORMED: Bronchoscopy with endobronchial ultrasound-guided fine needle aspiration of mediastinal node. PREPROCEDURAL DIAGNOSIS: Mediastinal adenopathy with positive nodes. ANESTHESIA: General anesthesia. ANESTHESIOLOGIST: Dr. Kenya Stoner. DESCRIPTION OF PROCEDURE: Informed consent was obtained from the patient prior to the procedure after all the risks and benefits were thoroughly explained. The patient recently diagnosed with pulmonary embolism and he presented with acute onset of shortness of breath. The patient also was noted to have pleural effusion on the left side that subsequently resolved. The patient was found to be having nodularity in the right lower lobe, was evaluated with the PET scan. The patient with 1.8 cm nodular density in the right lower lobe which is consistent with round atelectasis. The patient also with 1 cm nodule in the right lung base adjacent to the major fissure with minimal hypermetabolic activity of 1.3 SUV. The patient with hypermetabolic mass in the right hilar region measuring 1.8 cm and with SUV of 8.5. The patient also with enlarged hypermetabolic pretracheal, precarinal, subcarinal lymph nodes. The patient also with hypermetabolic lesion in the T5 vertebra concerning for possible metastatic disease. The patient was intubated with size 8.5 endotracheal tube. Appropriate time-out was performed and agreed on by attending staff prior to the procedure. Flexible Olympus bronchoscope was subsequently inserted through ET tube for airway inspection. No endobronchial lesions were noted. All airways were patent. Minimal secretions were noted and were suctioned out. Bronchoscope was then withdrawn and EBUS bronchoscope was inserted. The patient found to have significantly enlarged nodes that could be sampled on the left side. R4 was enlarged and was sampled with 4 passes. Rapid on- site evaluate revealed malignant cells suggestive of possible non-small cell lung cancer. Rest of the sample was placed in CytoLyt for cell blocks and also air- dry slides were also prepared. EBUS bronchoscope was then withdrawn and regular bronchoscope was reinserted for evaluation of any bleeding. No significant bleeding was noted. Some mucus and blood clot were suctioned out. Bronchoscope was then withdrawn. The patient was extubated and seen in recovery in optimal condition. [id number] #: [id number] [facility]
== END 2019-09-28 15:52 | disposition home or self-care (01) ==
LOC: OR 10:32
PROVIDERS: ATTEND Internal Medicine
DX: C77.1 Secondary and unspecified malignant neoplasm of intrathoracic lymph nodes (principal); Z86.711 Personal history of pulmonary embolism; Z79.01 Long term (current) use of anticoagulants; Z86.718 Personal history of other venous thrombosis and embolism; I10 Essential (primary) hypertension; R00.2 Palpitations
CPT/HCPCS: 81445; 88172; 88173; 88305; 88341; 88342; 88360; A9270-GY; J1100; J2250; J2405; J2704; J2765; J3010

== ENCOUNTER 2020-01-04 20:50 | Emergency (ER) | payer BC ==
[2020-01-04 21:42] LABS: ABS Eosinophils 0.1 10^3/ul (0-0.6); ABS Lymphocytes 0.7 10^3/ul (1.0-4.8); ABS Monocytes 0.5 10^3/ul (0-0.8); ABS Neutrophils 2.2 10^3/ul (1.5-7.7); Eosinophil % 2.3 %; Hematocrit 39 % (42-52); Hemoglobin 13.7 g/dL (14.0-18.0); Lymphocyte % 20.8 %; Mean Corpuscular HGB Conc 35 g/dL (31-36); Mean Corpuscular Hemoglobin 31 pg (27-31); Mean Corpuscular Volume 89 fL (80-94); Mean Platelet Volume 8.1 fL (7.4-10.4); Nucleated Red Blood Cells % 0.2; Platelet Count 271 10^3/uL (150-450); Red Blood Count 4.42 10^6 /uL (4.18-5.48); Red Cell Distribution Width 13 % (10-15); White Blood Count 3.5 10^3/uL (3.5-10.8)
[2020-01-04 21:49] LABS: INR 1.12 (0.82-1.09)
[2020-01-04 21:57] LABS: Albumin 3.5 g/dL (3.2-5.2); Albumin/Globulin Ratio 1.1 (1-3); BUN/Creatinine Ratio 14.7 (8-20); C Reactive Protein 14.06 mg/L (<8.01); Calcium 8.6 mg/dL (8.6-10.3); EGFR Non-African American 82.6 (>60); Globulin 3.1 g/dL (2-4); Total Bilirubin 0.3 mg/dL (0.2-1.0); Total Protein 6.6 g/dL (6.4-8.9)
--- NOTE | 2020-01-04 22:13 | ED ---
Lower Extremity - HPI Summary HPI Summary: 54 year old M presenting to [facility] via private car with a chief complaint of left lower leg pain for two days. Patient states that he has redness traveling up his left leg and is experiencing pain which he rates as 5/10 in severity. He experienced swelling in his left leg yesterday without redness but states the swelling has decreased, although he developed erythema and increasing pain today. Patient denies fever. He is able to ambulate on the leg. Patient has experienced this before and states that he was previously diagnosed with an ulcer on his left leg with subsequent cellulitis. He has a PMHx of stage 4 lung cancer and blood clots. Patient is currently taking eliquis and is receiving chemotherapy and radiation (his first appointment was on 12/07/2019 and his next appointment is on 01/16/2020). He denies smoking, use of marijuana, and recreational drug use. - History of Current Complaint Chief Complaint: EDExtremityLower Stated Complaint: CELLULITIS PER PT Time Seen by Provider: 01/04/20 21:13 Hx Obtained From: Patient Mechanism Of Injury: Unknown Onset of Pain: Days Onset/Duration: Still Present Severity Currently: Moderate Pain Intensity: 5 Pain Scale Used: 0-10 Numeric Location: Is Discrete @ - LLE Character Of Pain: Aching Associated Signs And Symptoms: Positive: Swelling - Patient experienced swelling earlier but symptom has since decreased., Redness. Negative: Fever Aggravating Factor(s): Nothing Alleviating Factor(s): Nothing Able to Bear Weight: Yes - Allergies/Home Medications Allergies/Adverse Reactions: Allergies Allergy/AdvReac Type Severity Reaction Status Date / Time No Known Allergies Allergy Verified 01/04/20 21:00 Home Medications: Home Medications Acetaminophen TAB* [Tylenol TAB*] 650 mg PO Q6H PRN #60 tab 06/07/19 [Rx Confirmed 01/04/20] Rivaroxaban TAB(*) [Xarelto 20 mg] 20 mg PO QAM 09/21/19 [History Confirmed 07/15] Clindamycin Cap(NF) [Clindamycin Cap 300 mg Cap(NF)] 300 mg PO Q6H #40 cap 01/03 [Rx] Multivitamins/Minerals TAB* [Theragran/minerals TAB*] 1 tab PO DAILY 01/04/20 [ History Confirmed 01/04/20] PMH/Surg Hx/FS Hx/Imm Hx Endocrine/Hematology History: Denies: Hx Bone Marrow Disease, Hx Diabetes, Hx Sickle Cell Disease, Hx Thyroid Disease, Hx Anemia Cardiovascular History: Reports: Hx Deep Vein Thrombosis Denies: Hx Angina, Hx Cardiomegaly, Hx Congestive Heart Failure, Hx Coronary Artery Disease, Hx Hypertension, Hx Pacemaker/ICD, Hx Peripheral Vascular Disease, Hx Rheumatic Fever, Hx Valvular Heart Disease, Other Cardiovascular Problems/Disorders Respiratory History: Reports: Hx Pulmonary Edema - RELATED TO PULM EMBOLISM, SINCE CLEARED, Hx Pulmonary Embolism - CHEST EMBOLI AND BOTH LEGS Denies: Hx Asthma, Hx Sleep Apnea GI History: Denies: Hx Cirrhosis, Hx Crohn's Disease, Hx Gastroesophageal Reflux Disease , Hx Hiatal Hernia, Hx Irritable Bowel, Hx Jaundice, Hx Ulcer, Other GI Disorders History: Denies: Hx Dialysis, Hx Kidney Infection, Hx Kidney Stones, Hx Renal Disease , Other Problems/Disorders Musculoskeletal History: Reports: 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, Hx Bursitis - COMES AND GOES" LOWER RIGHT HIP AREA, Other Musculoskeletal History - cellulitis Denies: Hx Tendonitis Sensory History: Reports: Hx Contacts or Glasses - GLASSES Denies: Hx Cataracts, Hx Glaucoma, Hx Deafness, Hx Hearing Aid Opthamlomology History: Reports: Hx Contacts or Glasses - GLASSES Denies: Hx Cataracts, Hx Glaucoma Neurological History: Denies: Hx Dementia, Hx Headaches, Hx Migraine, Hx Nerve Disease, Hx Seizures , Other Neuro Impairments/Disorders Psychiatric History: Denies: Hx Anxiety, Hx Depression, Hx Panic Disorder - Cancer History Cancer Type, Location and Year: stage 4 lung with chemo and radiation Hx Chemotherapy: Yes - last 12/07/2019 Hx Radiation Therapy: Yes - Surgical History Surgical History: Yes Surgery Procedure, Year, and Place: gastric bypass in 2002 Hx Anesthesia Reactions: No Infectious Disease History: No Infectious Disease History: Denies: Hx Hepatitis, Traveled Outside the [place] in Last 30 Days - Family History Known Family History: Positive: Cardiac Disease - Social History Alcohol Use: Occasionally Alcohol Amount: BEER Hx Substance Use: No Substance Use Type: Reports: None Hx Tobacco Use: No Smoking Status (MU): Never Smoked Tobacco - Additional Comments History Additional Comments: cellulitis, DVT, PE, stage 4 lung cancer with chemo/radiation, current Eliquis use, occasional EtOH Review of Systems - ROS Summary Review of Systems Summary: Home Medications Medication Instructions Recorded Confirmed Type Acetaminophen TAB* [Tylenol TAB*] 650 mg PO Q6H PRN #60 tab 06/07/19 01/04/20 Rx Rivaroxaban TAB(*) [Xarelto 20 mg] 20 mg PO QAM 09/21/19 01/04/20 History Clindamycin Cap(NF) [Clindamycin 300 mg PO Q6H #40 cap 01/04/20 Rx Cap 300 mg Cap(NF)] Multivitamins/Minerals TAB* 1 tab PO DAILY 01/04/20 01/04/20 History [Theragran/minerals TAB*] Negative: Fever Positive: Myalgia - pain in his left lower leg. , Edema - Patient experienced swelling earlier but it has since decreased. Positive: Other - Redness in LLE All Other Systems Reviewed And Are Negative: Yes Physical Exam - Summary Physical Exam Summary: General: Well-developed, Well-nourished MALE. No acute distress. HEENT: Normocephalic, Atraumatic. Eyes: Conjuctiva normal, PERRL. Oropharynx: Clear, mucous membranes moist, (-) exudates. Neck: Soft, FROM, (-) lymphadenopathy, (-) thyromegaly, (-) JVD. Cardiovascular: Normal sinus rhythm, (-) murmur. Lungs: Clear to auscultation bilaterally (-) wheezes, (-) rales, (-) rhonchi. Abdomen: Soft, non-tender, non-distended, (-) organomegaly, normal bowel sounds. Back: (-) CVA tenderness Extremities: Left lower leg swelling of foot and above the ankle. Erythema, warmth, and tenderness present. Good pulses and good capillary refill. Skin: Warm, dry, (-) rash. Neuro: Alert and oriented x3, moves all extremities equally. No ataxia. No gait disturbance. No sensory deficit. Normal strength, normal sensation. Psychiatric: Mood normal, affect normal. Triage Information Reviewed: Yes Vital Signs On Initial Exam: Initial Vitals Temp Pulse Resp BP Pulse Ox 98.3 F 89 20 154/102 96 01/04/20 20:57 01/04/20 20:57 01/04/20 20:57 01/04/20 20:57 01/04/20 20:57 Vital Signs Reviewed: Yes Procedures - Sedation Patient Received Moderate/Deep Sedation with Procedure: No Diagnostics - Vital Signs Vital Signs Temp Pulse Resp BP Pulse Ox 01/04/20 21:32 82 96 01/04/20 21:30 84 128/85 96 01/04/20 20:57 98.3 F 89 20 154/102 96 - Laboratory Lab Results: Lab Results 01/04/20 01/04/20 01/04/20 Range/Units 21:31 21:31 21:31 WBC 3.5 (3.5-10.8) 10^3/uL RBC 4.42 (4.18-5.48) 10^6 /uL Hgb 13.7 L (14.0-18.0) g/dL Hct 39 L (42-52) % MCV 89 (80-94) fL MCH 31 (27-31) pg MCHC 35 (31-36) g/dL RDW 13 (10-15) % Plt Count 271 (150-450) 10^3/uL MPV 8.1 (7.4-10.4) fL Neut % (Auto) 63.0 % Lymph % (Auto) 20.8 % Izard % (Auto) 13.5 % Eos % (Auto) 2.3 % Baso % (Auto) 0.4 % Absolute Neuts (auto) 2.2 (1.5-7.7) 10^3/ul Absolute Lymphs (auto) 0.7 L (1.0-4.8) 10^3/ul Absolute Monos (auto) 0.5 (0-0.8) 10^3/ul Absolute Eos (auto) 0.1 (0-0.6) 10^3/ul Absolute Basos (auto) 0.0 (0-0.2) 10^3/ul Absolute Nucleated RBC 0.0 10^3/ul Nucleated RBC % 0.2 ESR Pending INR (Anticoag Therapy) 1.12 H (0.82-1.09) Sodium (135-145) mmol/L Potassium (3.5-5.0) mmol/L Chloride (101-111) mmol/L Carbon Dioxide (22-32) mmol/L Anion Gap (2-11) mmol/L BUN (6-24) mg/dL Creatinine (0.67-1.17) mg/dL Est GFR ( Amer) (>60) Est GFR (Non-Af Amer) (>60) BUN/Creatinine Ratio (8-20) Glucose (70-100) mg/dL Lactic Acid 1.0 (0.5-2.0) mmol/L Calcium (8.6-10.3) mg/dL Total Bilirubin (0.2-1.0) mg/dL AST (13-39) U/L ALT (7-52) U/L Alkaline Phosphatase (34-104) U/L C-Reactive Protein (<8.01) mg/L Total Protein (6.4-8.9) g/dL Albumin (3.2-5.2) g/dL Globulin (2-4) g/dL Albumin/Globulin Ratio (1-3) /07/15 Range/Units 21:31 WBC (3.5-10.8) 10^3/uL RBC (4.18-5.48) 10^6 /uL Hgb (14.0-18.0) g/dL Hct (42-52) % MCV (80-94) fL MCH (27-31) pg MCHC (31-36) g/dL RDW (10-15) % Plt Count (150-450) 10^3/uL MPV (7.4-10.4) fL Neut % (Auto) % Lymph % (Auto) % Izard % (Auto) % Eos % (Auto) % Baso % (Auto) % Absolute Neuts (auto) (1.5-7.7) 10^3/ul Absolute Lymphs (auto) (1.0-4.8) 10^3/ul Absolute Monos (auto) (0-0.8) 10^3/ul Absolute Eos (auto) (0-0.6) 10^3/ul Absolute Basos (auto) (0-0.2) 10^3/ul Absolute Nucleated RBC 10^3/ul Nucleated RBC % ESR INR (Anticoag Therapy) (0.82-1.09) Sodium 136 (135-145) mmol/L Potassium 4.0 (3.5-5.0) mmol/L Chloride 103 (101-111) mmol/L Carbon Dioxide 30 (22-32) mmol/L Anion Gap 3 (2-11) mmol/L BUN 14 (6-24) mg/dL Creatinine 0.95 (0.67-1.17) mg/dL Est GFR ( Amer) 100.0 (>60) Est GFR (Non-Af Amer) 82.6 (>60) BUN/Creatinine Ratio 14.7 (8-20) Glucose 127 H (70-100) mg/dL Lactic Acid (0.5-2.0) mmol/L Calcium 8.6 (8.6-10.3) mg/dL Total Bilirubin 0.30 (0.2-1.0) mg/dL AST 25 (13-39) U/L ALT 42 (7-52) U/L Alkaline Phosphatase 103 (34-104) U/L C-Reactive Protein 14.06 H (<8.01) mg/L Total Protein 6.6 (6.4-8.9) g/dL Albumin 3.5 (3.2-5.2) g/dL Globulin 3.1 (2-4) g/dL Albumin/Globulin Ratio 1.1 (1-3) Result Diagrams: 01/04/20 21:31 01/04/20 21:31 Lab Statement: Any lab studies that have been ordered have been reviewed, and results considered in the medical decision making process. Re-Evaluation - Re-Evaluation First Eval Re-Evaluation Time: 22:20 Comment: I discussed all results. Discussed all symptoms that warrant return to the ED. Lower Extremity Course/Dx - Course Course Of Treatment: 54-year-old male presents from home with left lower leg erythema and edema. He states yesterday morning he noticed his left foot and ankle were extremely swollen. Today he states the swelling is actually gone down some but it is now red and traveling up the leg. Mild discomfort. No fevers. Patient has lung cancer. Currently undergoing chemotherapy. He has had cellulitis previously but that was associated with an ulcer. Similar area. Patient has obvious erythematous patches and swelling of the left lower leg. He has good pulses and capillary refill. No drainage noted. Afebrile. Workup demonstrated normal white count and normal lactic acid. Patient is started on clindamycin. Advised elevation. Follow up with PCP. Follow up sooner for any worsening symptoms. - Diagnoses Provider Diagnoses: Cellulitis Discharge ED - Sign-Out/Discharge Documenting (check all that apply): Patient Departure - Discharged to home. - Discharge Plan Condition: Stable Disposition: HOME Prescriptions: Clindamycin Cap(NF) [Clindamycin Cap 300 mg Cap(NF)] 300 mg PO Q6H #40 cap Patient Education Materials: Cellulitis (ED) Referrals: Sanaz Lei MD [Primary Care Provider] - 3 Days Additional Instructions: Please follow up with your primary care physician within three days. Please return to the Emergency Department for any new or worsening symptoms. - Billing Disposition and Condition Condition: STABLE Disposition: Home - Attestation Statements Document Initiated by Scribe: Yes Documenting Scribe: Ary Solorzano Provider For Whom Angie is Documenting (Include Credential): Rosario Rawls MD Scribe Attestation: ISusana Natalie George, scribed for Rosario Rawls MD on 01/05/20 at 0531. Scribe Documentation Reviewed: Yes Provider Attestation: The documentation as recorded by the angie, Ary Solorzano accurately reflects the service I personally performed and the decisions made by me, Rosario Rawls MD Status of Scribe Document: Viewed
[2020-01-04] MEDS ORDERED: Clindamycin CAP* 150 MG PO ONE (22:14)
[2020-01-04 22:40] VITALS: BP 135/89
[2020-01-04 22:52] LABS: Erythrocyte Sed Rate 19 mm/Hr (0-19)
== END 2020-01-04 22:39 | disposition home or self-care (01) ==
LOC: ED 20:50
DX: L03.116 Cellulitis of left lower limb (principal); C34.90 Malignant neoplasm of unspecified part of unspecified bronchus or lung; Z86.718 Personal history of other venous thrombosis and embolism; Z86.711 Personal history of pulmonary embolism; Z98.84 Bariatric surgery status; Z79.01 Long term (current) use of anticoagulants
CPT/HCPCS: 36415; 80053; 83605; 85025; 85610; 85652; 86140; 87040; 99283; A9270-GY

== ENCOUNTER 2021-12-26 11:39 | Inpatient (IN) ==
[2021-12-26] MEDS ORDERED: Lactated Ringers 1000 ml BAG 1,000 ML IV ONE ×2 (12:29→20:50)
[2021-12-26 13:01] LABS: ABS Lymphocytes 0.3 10^3/ul (1.0-4.8); ABS Monocytes 0.5 10^3/ul (0-0.8); ABS Neutrophils 8.5 10^3/ul (1.5-7.7); Eosinophil % 0.2 %; Hematocrit 35 % (42-52); Hemoglobin 11.7 g/dL (14.0-18.0); Lymphocyte % 2.7 %; Mean Corpuscular HGB Conc 33 g/dL (31-36); Mean Corpuscular Hemoglobin 30 pg (27-31); Mean Corpuscular Volume 90 fL (80-94); Mean Platelet Volume 8.9 fL (7.4-10.4); Platelet Count 40 10^3/uL (150-450); Red Blood Count 3.93 10^6 /uL (4.18-5.48); Red Cell Distribution Width 17 % (10-15); White Blood Count 9.3 10^3/uL (3.5-10.8)
[2021-12-26 13:29] LABS: Albumin 2.8 g/dL (3.2-5.2); Albumin/Globulin Ratio 0.9 (1-3); Calcium 7.8 mg/dL (8.6-10.3); Potassium 4.7 mmol/L (3.5-5.0); Total Bilirubin 0.7 mg/dL (0.2-1.0); Total Protein 5.8 g/dL (6.4-8.9); eGFR CKD-EPI 20.6 (>60)
[2021-12-26 14:20] LABS: High Sensitivity Troponin 1 Hr 5 pg/mL (<20)
[2021-12-26 21:46] LABS: INR 2.04 (0.86-1.15)
[2021-12-26] MEDS ORDERED: Warfarin per PHARMACY **NOTE FOLLOW UP SCH (22:00)
[2021-12-26] MEDS: Acetaminop/Codeine 300mg/30mg TAB PO PRN (23:06)
[2021-12-27 06:53] LABS: INR 2.11 (0.86-1.15)
[2021-12-27 07:01] LABS: Calcium 7.5 mg/dL (8.6-10.3); Potassium 4.9 mmol/L (3.5-5.0); eGFR CKD-EPI 27.1 (>60)
[2021-12-27 07:02] LABS: ABS Lymphocytes 0.2 10^3/ul (1.0-4.8); ABS Monocytes 0.2 10^3/ul (0-0.8); ABS Neutrophils 6.6 10^3/ul (1.5-7.7); Hematocrit 30 % (42-52); Hemoglobin 10.4 g/dL (14.0-18.0); Lymphocyte % 2.2 %; Mean Corpuscular HGB Conc 34 g/dL (31-36); Mean Corpuscular Hemoglobin 31 pg (27-31); Mean Corpuscular Volume 90 fL (80-94); Mean Platelet Volume 9.8 fL (7.4-10.4); Platelet Count 42 10^3/uL (150-450); Red Blood Count 3.38 10^6 /uL (4.18-5.48); Red Cell Distribution Width 18 % (10-15)
[2021-12-27] MEDS ORDERED: Lactated Ringers 1000 ml BAG 1,000 ML IV ONE (09:23)
[2021-12-27 09:34] LABS: Activated Partial Thrombo Time 29.5 seconds (26.0-38.0)
[2021-12-27] MEDS ORDERED: Heparin 5000 UNITS/ML 1 mL VIAL IV SCH (10:00)
[2021-12-27] MEDS: METRONIDAZOLE 50 MG/ML PO SCH ×3 (10:09→21:06)
[2021-12-27] MEDS: Ondansetron 4 mg VIAL 2 MG/ML 2 ml VIAL IV PRN (12:44)
[2021-12-27] MEDS: cefTRIAXone 1 gm/50 mL D5W 1 GM/50 ML BAG IV SCH (12:45)
[2021-12-27] MEDS: Heparin DRIP 25,000 UNITS BAG 25,000 UNITS/500 ML BAG IV SCH (13:20)
[2021-12-27] MEDS ORDERED: Warfarin DAILY REMINDER **NOTE FOLLOW UP SCH (17:00)
[2021-12-28 03:19] LABS: ABS Lymphocytes 0.3 10^3/ul (1.0-4.8); ABS Monocytes 0.7 10^3/ul (0-0.8); ABS Neutrophils 7.8 10^3/ul (1.5-7.7); Hematocrit 30 % (42-52); Hemoglobin 10.1 g/dL (14.0-18.0); Lymphocyte % 3.4 %; Mean Corpuscular HGB Conc 33 g/dL (31-36); Mean Corpuscular Hemoglobin 30 pg (27-31); Mean Corpuscular Volume 90 fL (80-94); Platelet Count 55 10^3/uL (150-450); Red Blood Count 3.37 10^6 /uL (4.18-5.48); Red Cell Distribution Width 18 % (10-15); White Blood Count 8.8 10^3/uL (3.5-10.8)
[2021-12-28 04:25] LABS: Potassium 3.8 mmol/L (3.5-5.0)
[2021-12-28 04:26] LABS: Calcium 7.6 mg/dL (8.6-10.3); eGFR CKD-EPI 29.7 (>60)
[2021-12-28] MEDS: METRONIDAZOLE 50 MG/ML PO SCH ×3 (10:24→20:57)
[2021-12-28] MEDS: cefTRIAXone 1 gm/50 mL D5W 1 GM/50 ML BAG IV SCH (10:26)
[2021-12-28] MEDS: Heparin DRIP 25,000 UNITS BAG 25,000 UNITS/500 ML BAG IV SCH (10:48)
[2021-12-28] MEDS: Acetaminop/Codeine 300mg/30mg TAB PO PRN (22:54)
[2021-12-28] MEDS: Ondansetron 4 mg VIAL 2 MG/ML 2 ml VIAL IV PRN (23:00)
[2021-12-29 06:48] LABS: ABS Lymphocytes 0.3 10^3/ul (1.0-4.8); ABS Monocytes 0.5 10^3/ul (0-0.8); ABS Neutrophils 5.6 10^3/ul (1.5-7.7); Hematocrit 31 % (42-52); Hemoglobin 10.4 g/dL (14.0-18.0); Lymphocyte % 4.9 %; Mean Corpuscular HGB Conc 34 g/dL (31-36); Mean Corpuscular Hemoglobin 30 pg (27-31); Mean Corpuscular Volume 90 fL (80-94); Mean Platelet Volume 8.9 fL (7.4-10.4); Nucleated Red Blood Cells % 0.1; Platelet Count 68 10^3/uL (150-450); Red Blood Count 3.45 10^6 /uL (4.18-5.48); Red Cell Distribution Width 18 % (10-15); White Blood Count 6.4 10^3/uL (3.5-10.8)
[2021-12-29 06:51] LABS: INR 1.33 (0.86-1.15)
[2021-12-29 07:36] LABS: Calcium 7.7 mg/dL (8.6-10.3); Potassium 3.8 mmol/L (3.5-5.0)
[2021-12-29] MEDS: METRONIDAZOLE 50 MG/ML PO SCH ×3 (10:39→21:53)
[2021-12-29] MEDS: cefTRIAXone 1 gm/50 mL D5W 1 GM/50 ML BAG IV SCH (10:43)
[2021-12-29 16:08] LABS: C Reactive Protein 46.38 mg/L (<8.01)
[2021-12-30 06:19] LABS: ABS Lymphocytes 0.4 10^3/ul (1.0-4.8); ABS Monocytes 0.8 10^3/ul (0-0.8); ABS Neutrophils 6.6 10^3/ul (1.5-7.7); Hematocrit 30 % (42-52); Hemoglobin 9.8 g/dL (14.0-18.0); Lymphocyte % 4.6 %; Mean Corpuscular HGB Conc 33 g/dL (31-36); Mean Corpuscular Hemoglobin 30 pg (27-31); Mean Corpuscular Volume 91 fL (80-94); Mean Platelet Volume 8.9 fL (7.4-10.4); Platelet Count 66 10^3/uL (150-450); Red Blood Count 3.26 10^6 /uL (4.18-5.48); Red Cell Distribution Width 18 % (10-15); White Blood Count 7.8 10^3/uL (3.5-10.8)
[2021-12-30 06:19] LABS: INR 1.3 (0.86-1.15)
[2021-12-30 06:35] LABS: Calcium 7.7 mg/dL (8.6-10.3); Potassium 3.5 mmol/L (3.5-5.0)
[2021-12-30 06:40] LABS: C Reactive Protein 24.49 mg/L (<8.01); eGFR CKD-EPI 48.4 (>60)
[2021-12-30] MEDS: METRONIDAZOLE 50 MG/ML PO SCH ×3 (09:45→21:13)
[2021-12-30] MEDS: cefTRIAXone 1 gm/50 mL D5W 1 GM/50 ML BAG IV SCH (09:45)
[2021-12-30 10:20] LABS: Erythrocyte Sed Rate 9 mm/Hr (0-19)
[2021-12-31 06:38] LABS: INR 2.29 (0.86-1.15)
[2021-12-31 06:51] LABS: Albumin 2.9 g/dL (3.2-5.2); Calcium 7.7 mg/dL (8.6-10.3); Globulin 2.9 g/dL (2-4); Potassium 3.6 mmol/L (3.5-5.0); Total Bilirubin 0.5 mg/dL (0.2-1.0); Total Protein 5.8 g/dL (6.4-8.9); eGFR CKD-EPI 53.4 (>60)
[2021-12-31 07:00] LABS: ABS Lymphocytes 0.4 10^3/ul (1.0-4.8); ABS Monocytes 0.9 10^3/ul (0-0.8); ABS Neutrophils 7.2 10^3/ul (1.5-7.7); Eosinophil % 0.1 %; Hematocrit 31 % (42-52); Hemoglobin 10.3 g/dL (14.0-18.0); Lymphocyte % 5.2 %; Mean Corpuscular HGB Conc 33 g/dL (31-36); Mean Corpuscular Hemoglobin 30 pg (27-31); Mean Corpuscular Volume 92 fL (80-94); Mean Platelet Volume 9.8 fL (7.4-10.4); Nucleated Red Blood Cells % 0.2; Platelet Count 77 10^3/uL (150-450); Red Blood Count 3.42 10^6 /uL (4.18-5.48); Red Cell Distribution Width 19 % (10-15); White Blood Count 8.5 10^3/uL (3.5-10.8)
[2021-12-31 08:19] LABS: Anisocytosis 2+
[2021-12-31] MEDS: METRONIDAZOLE 50 MG/ML PO SCH ×2 (08:30→14:12)
[2021-12-31] MEDS: cefTRIAXone 1 gm/50 mL D5W 1 GM/50 ML BAG IV SCH (08:30)
[2021-12-31] MEDS ORDERED: Ondansetron 4 mg VIAL 2 MG/ML 2 ml VIAL IV PRN (10:47)
[2022-01-01 05:24] LABS: Hematocrit 31 % (42-52); Hemoglobin 10.3 g/dL (14.0-18.0); Mean Corpuscular HGB Conc 33 g/dL (31-36); Mean Corpuscular Hemoglobin 31 pg (27-31); Mean Corpuscular Volume 92 fL (80-94); Platelet Count 77 10^3/uL (150-450); Red Blood Count 3.38 10^6 /uL (4.18-5.48); Red Cell Distribution Width 19 % (10-15)
[2022-01-01 08:21] LABS: ABS Lymphocytes 0.6 10^3/ul (1.0-4.8); ABS Monocytes 1.3 10^3/ul (0-0.8); Eosinophil % 0.1 %; Lymphocyte % 6.5 %; Nucleated Red Blood Cells % 0.1
[2022-01-01 11:01] LABS: INR 4.36 (0.86-1.15)
[2022-01-01] MEDS: cefTRIAXone 1 gm/50 mL D5W 1 GM/50 ML BAG IV SCH (11:06)
[2022-01-01 11:47] VITALS: BP 122/84
[2022-01-01] MEDS ORDERED: Warfarin DAILY REMINDER **NOTE FOLLOW UP SCH (17:00)
[2022-01-04 14:35] LABS: Cyclic Citrullinated Peptide <15.6 U
[2022-01-04 16:59] LABS: JO-1 Antibody <0.2 U; RNP Antibody, IgG 0.2 U; Ribosomal Antibody <0.2 U; SS-A/Ro Antibody >8.0 U; SS-B/La Antibody <0.2 U; Sm (Smith) IgG Antibody <0.2 U
[2022-01-05 13:53] LABS: ds DNA Ab w/ Reflex < 12.3 IU/mL
[2022-01-06 19:57] LABS: Legionella pneumophila Ab Negative (Negative)
== END 2022-01-01 17:15 | disposition home or self-care (01) | DRG 288 ==
LOC: ED 11:39 → SUATTDRO 18:02 → MED 18:02
PROVIDERS: ADMIT Internal Medicine; ATTEND Internal Medicine